=== PATIENT | female | born 1990 | race Two or more races ===

== ENCOUNTER 2018-05-11 19:12 | Emergency (ER) | payer SELFPAY ==
[~2018-05-11] VITALS: Ht 165.1 cm; Wt 79.4 kg
[2018-05-11] MEDS ORDERED: ONDANSETRON HCL 4 MG ORAL DISINTEGRATING TAB PO ONE (19:30)
[2018-05-11 19:47] LABS: BASOPHILS % 0.4 % (0.0-1.0); HEMATOCRIT 34.5 % (34.2-44.1); HEMOGLOBIN 10.8 g/dL (12.0-16.0); LYMPHOCYTES # (AUTO) 2.2 (1.0-3.2); LYMPHOCYTES % 28.5 % (18.0-39.1); MEAN CORPUSCULAR HGB CONC 31.3 g/dL (31-35); MEAN CORPUSCULAR VOLUME 73.6 fL (81-99); MONOCYTES # (AUTO) 0.5 (0.2-0.8); NEUTROPHILS # (AUTO) 4.9 (2.1-6.9); PLATELET COUNT 352 x10e3/uL (140-360); RED BLOOD COUNT 4.69 x10e6/uL (3.6-5.1); RED CELL DISTRIBUTION WIDTH 15.4 % (11.7-14.4)
[2018-05-11 19:55] LABS: CLARITY,URINE CLEAR (CLEAR); COLOR,URINE YELLOW (YELLOW); KETONES,URINE NEGATIVE (NEGATIVE); LEUKOCYTE ESTERASE ,URINE NEGATIVE (NEGATIVE); NITRITE,URINE NEGATIVE (NEGATIVE); PROTEIN,URINE DIPSTICK NEGATIVE (NEGATIVE)
[2018-05-11 19:56] LABS: URINE UROBILINOGEN 0.2 mg/dL (0.2 - 1)
[2018-05-11 19:57] LABS: BILIRUBIN,URINE NEGATIVE (NEGATIVE); PREGNANCY TEST, URINE NEGATIVE (NEGATIVE)
[2018-05-11 20:03] LABS: ALANINE AMINOTRANSFERASE 11 IU/L (0-55); ALBUMIN 3.6 g/dL (3.5-5.0); ALBUMIN/GLOBULIN RATIO 0.9 (0.8-2.0); ALKALINE PHOSPHATASE 80 IU/L (40-150); ANION GAP 12.5 mmol/L (8-16); BLOOD UREA NITROGEN 10 mg/dL (7-26); BUN/CREATININE RATIO 15 (6-25); CALCIUM 7.8 mg/dL (8.4-10.2); CARBON DIOXIDE 26 mmol/L (22-29); CHLORIDE 103 mmol/L (98-107); CREATININE, SERUM 0.68 mg/dL (0.57-1.11); EST GLOMERULAR FILTRATION RATE > 60 ML/MIN (60-); GLUCOSE 87 mg/dL (74-118); POTASSIUM 3.5 mmol/L (3.5-5.1); SODIUM 138 mmol/L (136-145)
[2018-05-11 20:10] LABS: BACTERIA,URINE RARE /HPF; EPITHELIAL CELLS,URINE FEW /LPF; RBC,URINE 0-5 /HPF (0-5); WBC,URINE (MAN) 0-5 /HPF (0-5)
[2018-05-11 20:24] LABS: FREE THYROXINE INDEX 2.6175 (1.4-3.8); THYROID STIMULATING HORMONE 0.227 uIU/mL (0.350-4.940)
[2018-05-11 20:48] VITALS: BP 134/88
== END 2018-05-11 20:53 | disposition home or self-care (01) ==
LOC: ER 19:12
DX: R11.0 Nausea (principal); R53.83 Other fatigue; E03.9 Hypothyroidism, unspecified
CPT/HCPCS: 36415; 80053; 81001; 81025; 84436; 84443; 84479; 85025; 99283

== ENCOUNTER 2018-12-22 05:38 | Emergency (ER) | payer MEDICAID ==
[~2018-12-22] VITALS: Ht 165.1 cm; Wt 90.7 kg
[~2018-12-22 05:38] MED LIST: SYNTHROID125 MCG PO
[2018-12-22] MEDS ORDERED: SODIUM CHLORIDE 0.9% 1000ML 1,000 ML IV STA (05:50)
[2018-12-22] MEDS ORDERED: METHYLPREDNISOLONE SOD SUCC 125 MG/2ML VIAL IV STA (05:50)
[2018-12-22] MEDS ORDERED: FAMOTIDINE 20 MG/2 ML VIAL IV STA (05:50)
[2018-12-22] MEDS ORDERED: DIPHENHYDRAMINE HCL INJ 50 MG/ML VIAL IV ONE (06:00)
[2018-12-22 06:50] VITALS: BP 114/71
== END 2018-12-22 07:01 | disposition home or self-care (01) ==
LOC: ER 05:38
DX: L50.0 Allergic urticaria (principal)
CPT/HCPCS: 99283; J1200; J2930; J7030

== ENCOUNTER 2023-04-25 16:06 | Emergency (ER) | payer MEDICAID, OTHER ==
[~2023-04-25] VITALS: Ht 165.1 cm; Wt 90.7 kg
[2023-04-25 18:20] LABS: BASOPHILS % 0.6 % (0.0-1.0); HEMATOCRIT 36.1 % (34.2-44.1); LYMPHOCYTES # (AUTO) 1.3 (1.0-3.2); LYMPHOCYTES % 18.8 % (18.0-39.1); MEAN CORPUSCULAR HEMOGLOBIN 23.2 pg (28-32); MEAN CORPUSCULAR HGB CONC 30.5 g/dL (31-35); MEAN CORPUSCULAR VOLUME 76.2 fL (81-99); MONOCYTES # (AUTO) 0.4 (0.2-0.8); MONOCYTES % 6.2 % (4.4-11.3); NEUTROPHILS # (AUTO) 5.3 (2.1-6.9); NEUTROPHILS % 74.1 % (38.7-80.0); PLATELET COUNT 365 x10e3/uL (140-360); RED BLOOD COUNT 4.74 x10e6/uL (3.6-5.1); RED CELL DISTRIBUTION WIDTH 16.1 % (11.7-14.4)
[2023-04-25 18:32] LABS: ALBUMIN 3.6 g/dL (3.5-5.0); ALBUMIN/GLOBULIN RATIO 0.8 (0.8-2.0); ANION GAP 17.6 mmol/L (8-16); CREATININE, SERUM 0.77 mg/dL (0.57-1.11); POTASSIUM 3.6 mmol/L (3.5-5.1)
[2023-04-25 18:36] LABS: CALCIUM 6.5 mg/dL (8.4-10.2)
[2023-04-25] MEDS ORDERED: CALCIUM GLUC 1 G/50 ML NACL 50 ML IV SCH (19:15)
[2023-04-25 21:03] VITALS: O2SAT 100
== END 2023-04-25 21:40 | disposition home or self-care (01) ==
LOC: ER 16:20
DX: E83.51 Hypocalcemia (principal); E03.9 Hypothyroidism, unspecified; R20.2 Paresthesia of skin
CPT/HCPCS: 36415; 80053; 83735; 85025; 93005; 99284